=== PATIENT | male | born 1970 | race Caucasian/White ===

== ENCOUNTER → 2017-12-10 11:55 | Outpatient (CLI) | payer OTHER, SELFPAY ==
--- NOTE | 2017-12-10 13:27 | STRESSREP ---
Stress Test Report Treadmill EKG report: Resting EKG: Sinus bradycardia, normal axis, normal intervals, no evidence of previous myocardial infarction. Treadmill EKG: The patient exercise according to Mike protocol for 12 minutes and 0 seconds achieving a maximum workload of 13.4 mets. Resting heart rate was initially 57 beats a minute kathryn to maximum 176 beats a minute which represents 101% of the maximal age predicted heart rate. Resting blood pressure was 130/78 kathryn to maximum 164/70. Test was terminated due to leg discomfort. During exercise the patient's heart rate increased as expected. Patient had no significant dynamic EKG changes to suggest ischemia. No arrhythmias noted. No anginal symptoms noted. Conclusions: Normal adequate treadmill EKG. Negative for ischemia by EKG criteria. No anginal symptoms noted. No arrhythmias noted. Average exercise capacity for age. Appropriate blood pressure response to exercise. Test terminated due to the attainment of target heart rate as well as leg discomfort. No complications. Patient tolerated procedure well.
== END ==
PROVIDERS: Family Provider Student in an Organized Health Care Education/Training Program; PCP Student in an Organized Health Care Education/Training Program; Visit Provider Student in an Organized Health Care Education/Training Program
DX: R00.2 Palpitations (principal); R06.02 Shortness of breath; R53.83 Other fatigue
CPT/HCPCS: 93017

== ENCOUNTER 2019-05-21 10:39 | Day surgery (SDC) | payer OTHER, SELFPAY ==
[2019-05-18 13:34] VITALS: BMI 24.4
[2019-05-21 11:09] VITALS: BP 131/89; PULSE 57; RESP 16; TEMP 36.8; O2SAT 100; BMI 24.1
[2019-05-21] MEDS: Lactated Ringers 1,000 ML 75 ML IV (11:25)
[2019-05-21] MEDS: Cefazolin 2 GM in 0.9% Normal Saline 100 ML IV (12:58)
--- NOTE | 2019-05-21 13:00 | LIP_PTH ---
PATIENT: TALON [place]AUHAN [place] [facility] [id number] AGE/SX: 48/M ROOM: RE05/21/[address]: Dr. Sam Chen MD : 1970 BED: DIS: 05/21/2019 SPEC #: [id number] RECD: 05/21/19 15:55 STATUS: RADHA MOO #: [id number] JUAQUIN: 05/21/19 13:[address]: Sam Chen DEPT: SURGICAL PATHOLOGY RECD BY: Luis Ladd ENTERED: 05/24/19 12:57 SP TYPE: LIPOMA OTHR DR: Dr. Herminio Lennon, DO Tissues: Back, NOS Procedures: Surgery Specimen Level III HEADER OPERATION: Excision, lipoma, lower back PRE-OP DIAGNOSIS: Lesion of subcutaneous tissue, L98.9 TISSUE SUBMITTED: Subcutaneous tissue of back MICROSCOPIC DIAGNOSIS Subcutaneous tissue of back, biopsy: Mature adipose tissue, consistent with lipoma. SJ:estee 05/25/19 MICROSCOPIC DESCRIPTION Slides are reviewed. GROSS DESCRIPTION Received in fixative is one container labeled with the patient's name and designated subcutaneous tissue of back. The specimen consists of a disrupted piece of yellow adipose tissue measuring 11.5 x 3 x 3 cm. Serial sections reveal yellow adipose cut surface without area of hemorrhage, necrosis or cystic degeneration. Fresh Work Inspector sections are submitted in 3 cassettes. /PRANEETH:estee 05/24/19 TC: 1 CPT: 40244
[2019-05-21] MEDS: Bupivacaine Mpf 0.5% 30 ML VIAL (13:15)
--- NOTE | 2019-05-21 13:20 | PCM.HP.BLA ---
History and Physical Date of Admission: 05/21/19 [facility] [address] [place] [address] OFFICE VISIT Date of Service: 05/18/19 MR#: [id number] Acct: [id number] Name: TALON CHAUHAN Rep #: [id number] : 1970 Provider: Rajwinder Menchaca PA-C Age/Sex: 48/M Location: [facility] Status: Signed Intake Vital Signs 05/18/19 Body Mass Index (BMI) 24.4 05/18/19 Height 5 ft 6.75 in 05/18/19 Weight: 150 lb 05/18/19 Body Mass Index (BMI) 23.6 05/18/19 Blood Pressure 135/82 H 05/18/19 Blood Pressure Location Rt brachial 05/18/19 Respiratory Rate 18 05/18/19 Pulse Rate 61 05/18/19 Pulse Source Monitor 05/18/19 Temperature 98.4 F 05/18/19 Pulse Ox 98 05/18/19 Oxygen Delivery Method room air Intake Visit Reasons: Update H/P Lipoma Lower Back 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 Is patient in pain?: No Allergies Sulfa (Sulfonamide Antibiotics) Allergy (Mild, Verified 05/18/19 13:34) Unknown Medications fluticasone furoate 50 mcg/actuation blister powder for inhalation INHALATION ea 03/31/19 [History Confirmed 05/18/19] ibuprofen 200 mg tablet 200 mg PO Q6H 03/31/19 [History Confirmed 05/18/19] ranitidine 75 mg tablet 75 mg PO DAILY 03/31/19 [History Confirmed 05/18/19] PFSH Medical History Environmental allergies (Acute) Reflux gastritis (Acute) Surgical History H/O thumb surgery (Acute) S/P LIPOMA REMOVAL (Acute) Family History Grandmother Diabetes CVA (cerebral vascular accident) Thyroid disorder Father Cancer Brother Cancer Social History (Updated 05/19/19 @ 08:08 by Rajwinder Menchaca, PA-C) Smoking Status: Never smoker alcohol intake: current alcohol intake frequency: a few times a month HPI HPI HPI: TALON CHAUHAN, is a 48 M who presents to the office today for HPI HPI Surgical H&P: Yes HPI: Patient is a 48 y/o M I am following for subcutaneous lesion. Patient presents for an update history and physical for an upcoming removal of the lipoma. Patient denies recent hospitalizations or illness. Patient denies previous complications with anesthesia. Patient's previous history per Dr. Chen: TALON CHAUHAN, is a 48 M who presents to the office today for evaluation of a subcutaneous lesion to his left lower back. I have known this patient in the past and he removed lipomas from his lower back bilateral. Over the last 2 years he felt a small subcutaneous lesion that has been increasing in size. Was seen by his primary care physician who is referring him for surgical evaluation and treatment. He notices this when he lies flat on his back or has pressure on it he is not having any overt discomfort from it. ROS General General: Yes fatigue; no weight change, appetite, colon cancer, breast cancer or weakness HEENT HEENT: Yes eye injury and eye surgery; no difficulty swallowing, swollen glands or hoarseness Endo Endocrine: No thyroid disease, diabetes mellitus, thyroid cancer, Hair loss, heat intolerance or cold intolerance Skin Skin: No rash or changing moles Breast Breast: No left breast lump, right breast lump, nipple discharge, breast pain, abnormal mammogram, abnormal US or breast enlargement Musc Musculoskeletal: Yes back problems and arthritis; no rheumatoid arthritis, gout or joint pain Cardio Cardiovascular: No murmur, pacemaker, heart disease, atrial fibrillation, high blood pressure, heart attack, heart stent, palpitations, shortness of breat with exertion or chest pain Psych Psychiatric: No depression, anxiety or hearing voices Resp Respiratory: No shortness of breath, No sleep apnea, No cough, No COPD, No asthma, No emphysema, No wheezing Gastro Gastrointestinal: No abdominal pain, No nausea or vomiting, No diarrhea, No constipation, No blood in stool, Yes acid reflux, No hemorrhoids, Yes ulcers, No gallbladder problem, No black,tarry stools Gaudencio Hematologic: No blood thinners, No blood disorders, No bleeding, No anemia, No blood clots Neuro Neurologic: No weakness Exam Const General: cooperative, healthy appearing, comfortable, no acute distress [facility] Head: normal to inspection Eyes General: appearance normal, both eyes and all related structures Neck Neck: normal visual inspection Neck mass: No Chest Breast Palpation: No nipple discharge Resp Effort & Inspection: normal respiratory effort Cardio Rate: regular rate Rhythm: regular rhythm Heart Sounds: no murmurs GI Inspection: normal to inspection Palpation: soft Auscultation: normal bowel sounds Skin Other: left lateral lower back- approximately 5 cm lesion noted. Neuro General: no focal motor deficits, CN's II-XI intact bilaterally Extrem General: normal to inspection Psych Appearance: grossly normal Affect: normal affect Assessment & Plan Problems 1. Lesion of subcutaneous tissue L98.[address] Chen will plan to perform an excision of the subcutaneous lesion. Procedure details, risks and benefits have been reviewed. Patient has had the opportunity to ask and have questions answered. Patient verbally understands and agrees with the plan. Coding Level of Care Code No Charge Diagnoses Lesion of subcutaneous tissue L98.9 Comment Update H&P 05/19/19 0808 <Electronically signed by Rajwinder Menchaca PA-C> Date Rajwinder Menchaca PA-C Cosigner Signature: Date (if applicable) CC: ~ I have re-examined the patient. There are no clinical changes since date of exam.
--- NOTE | 2019-05-21 13:21 | PCM.OPRPT ---
Problem List (1) Lesion of subcutaneous tissue Status: Acute Report of Operation Date of Procedure: 05/21/19 Pre-Operative Diagnosis: Subcutaneous lesion to left lower back Post-Operative Diagnosis: 6 cm subcutaneous lesion in the left lower back Surgery/Procedure Performed:: Excision of 6 cm subcutaneous lesion of left lower back Type of Anesthesia:: Local MAC Anesthesiologist: Elvis Mora Specimen's removed: 6 cm fatty subcutaneous lesion Estimated Blood Loss (mL): < 25 cc Fluids Replaced: 600cc Description of Procedure: Patient was brought into the operating room placed in the prone position on the table. Under excellent MAC anesthetic his left lower back was sterilely prepped draped usual fashion. Local was injected. 7 cm incision was made dissection was carried down through the subcutaneous tissues to the fatty lesion that was identified I remove this fatty lesion it was actually quite deep is very similar to the once he has had in the past after removing it I palpated the area could not feel any signs of hernia and I was obviously trying to identify why he would keep having recurrences of the subcutaneous fatty lesions. I can find no hernia. Fatty tissue looked for all intensive purposes just like a lipoma I sent it to pathology for permanent sectioning. I had excellent hemostasis wound was brought together with deep dermal stitches of 3-0 Vicryl then a running 4-0 Monocryl Steri-Strips were applied sterile dressings were applied and the patient tolerated the procedure well. - Admit VTE Documentation VTE Present on Admission: No VTE Mechan Device Prophylaxis: SCD's VTE Pharm Prophylaxis ordered?: No Reason prophylaxis not ordered:: Treatment Not Indicated
--- NOTE | 2019-05-21 13:26 | DCINST_ITS ---
Discharge Diet: Light diet - advance as tolerated - If you have questions about your diet instructions, please talk to your doctor. Discharge Activity: May Not Drive - for 1 week or while taking narcotic pain medicine. May shower in (days): 1 Lifting Restrictions: 10 pounds Call your doctor if your incision/area has: Continuous Slow Oozing, Sudden Increased Bleeding, Increased Pain/ Swelling, Increased Redness, Foul Smelling Discharge Call your doctor if you observe: Fever of 101 or Higher Suture Line Care: Avoid Pulling/Pushing, Avoid Pinching/Bending Additional Dressing/Incision Instructions:: Change or remove dressing in 4 days. Leave steri-strips in place for 1 week. Allergies/Adverse Reactions: Allergies Sulfa (Sulfonamide Antibiotics) Allergy (Mild, Verified 05/21/19 11:07) Unknown Medications to take at Discharge ibuprofen 200 mg tablet 200 mg PO Q6H PRN 03/31/19 ranitidine 75 mg tablet 75 mg PO DAILY PRN 03/31/19 Multivitamin with Minerals [Multiple Vitamin] 1 ea PO DAILY 05/20/19 Oxycodone HCl/Acetaminophen [Percocet 5/325] 1 - 2 tab PO Q4H PRN PRN 6 Days #30 tab 05/21/19 The following prescriptions were given: Oxycodone HCl/Acetaminophen [Percocet 5/325] 1 - 2 tab PO Q4H PRN PRN 6 Days #30 tab PRN Reason: Pain Prescription Printed Primary Care Physician: Herminio Lennon DO [Primary Care Provider] - Test Results: Test results from this visit will be discussed in further detail at your follow- up appointment, if applicable. Please Follow Up With: Sam Chen MD - [phone] When: Call to make an appointment to be seen in about 10 days.
[2019-05-21 13:42] VITALS: BP 120/78; BP 131/89; PULSE 70; RESP 16; TEMP 36.7; O2SAT 100
[2019-05-21 13:45] VITALS: BP 118/86; BP 131/89; PULSE 56; RESP 16; O2SAT 100
[2019-05-21 13:50] VITALS: BP 117/87; BP 131/89; PULSE 52; RESP 16; O2SAT 100
[2019-05-21 13:52] VITALS: BP 122/87; BP 131/89; PULSE 52; RESP 16; TEMP 36.7; O2SAT 100
[2019-05-21 14:23] VITALS: BP 131/89
== END 2019-05-21 14:26 | disposition home or self-care (01) ==
LOC: SDC 10:41 → AC 10:50
PROVIDERS: Family Provider Student in an Organized Health Care Education/Training Program; PCP Student in an Organized Health Care Education/Training Program; Referring Provider Surgery; Visit Provider Surgery
PROC: (CPT 11406; principal; 2019-05-21 12:45)
DX: D17.1 Benign lipomatous neoplasm of skin and subcutaneous tissue of trunk (principal)
CPT/HCPCS: 11406; 88304; J7120

== ENCOUNTER → 2020-10-19 06:23 | Outpatient (CLI) | payer OTHER, SELFPAY ==
--- NOTE | 2020-10-19 06:45 | MRI_ITS ---
STUDY: MRI BRAIN WITH AND WITHOUT CONTRAST REASON FOR EXAM: Male, 50 years old. chronic headaches TECHNIQUE: Standardized multiplanar fat and water weighted pulse sequences were obtained. IV DOTAREM 15CC was administered for the contrast portion of the examination. COMPARISON: 09/04/2015 FINDINGS: Normal size of the ventricles and extra-axial spaces for the patient''s age. Normal white matter tracts of the supratentorial brain. Normal bilateral basal ganglia. Normal thalami. There is no extra-axial fluid accumulation. Normal flow voids within the major intracranial circulation suggesting patency by spin echo criteria. Normal venous enhancement. There is no enhancing intra-axial or extra-axial abnormality. Normal sella turcica, pituitary gland, infundibular stalk, optic chiasm and hypothalamus. Normal tectal plate and pineal gland. Normal midbrain, francis and medulla. Normal cerebellum. Normal basal cisterns. Normal bilateral temporal bones. Normal bilateral internal auditory canals. MRI/Brain W/WO Contrast IMPRESSION: Unremarkable unenhanced and enhanced MRI of the brain. Electronically Signed: Romario Arambula MD at 14:08 EST Tel , Service support ,
== END ==
PROVIDERS: PCP Student in an Organized Health Care Education/Training Program; Referring Provider Psychiatry & Neurology Neurology; Visit Provider Psychiatry & Neurology Neurology
DX: G44.89 Other headache syndrome (principal)
CPT/HCPCS: 70553; A9575

== ENCOUNTER 2020-12-14 10:14 | Outpatient (RCR) | payer OTHER, SELFPAY ==
[2020-12-14] MEDS: COVID-19 VACC, MRNA(PFIZER)/PF 30 MCG/0.3 ML SYRINGE IM (07:10)
[2021-01-04] MEDS: COVID-19 VACC, MRNA(PFIZER)/PF 30 MCG/0.3 ML SYRINGE IM (07:07)
== END 2020-12-14 23:59 ==
LOC: IMMUN 10:14
PROVIDERS: PCP Student in an Organized Health Care Education/Training Program; Visit Provider Family Medicine
DX: Z23 Encounter for immunization (principal)
CPT/HCPCS: 0001A; 0002A; 91300